=== PATIENT | male | born 1935 | race Caucasian/White ===

== ENCOUNTER 2018-02-24 21:30 | Observation (INO) ==
[2018-02-24] MEDS ORDERED: IOPAMIDOL 100 ML BOTTLE IV ONE (21:31)
[2018-02-24] MEDS ORDERED: DILTIAZEM 25 MG/5 ML VIAL IV ONE (21:39)
--- NOTE | 2018-02-24 21:40 | Emergency Department Note ---
General Adult HPI - General Chief complaint: Blood Pressure Problem Stated complaint: low blood pressure, high heart rate Time Seen by Provider: 02/24/18 21:32 Source: patient Mode of arrival: ambulatory Limitations: no limitations - History of Present Illness HPI Narrative: This patient is aware of some irregular tachycardia and slight shortness of breath this evening but no chest pain. Denies ever having anything like this before and has no chronic medical problems. - Related Data Home Medications Medication Instructions Recorded Confirmed Lisinopril [Zestril] 20 mg PO DAILY 06/06/15 06/06/15 Omeprazole [PriLOSEC] 20 mg PO ACB 06/06/15 06/06/15 metFORMIN [Glucophage] 1,000 mg PO BIDCC 06/06/15 06/06/15 Allergies Allergy/AdvReac Type Severity Reaction Status Date / Time propranolol AdvReac Mild Anxiety Verified 02/25/18 06:40 Review of Systems All systems ED: reviewed and negative except as stated. Past Medical History - Past Medical History Medical history: Reports: no medical history - Social History smoking status: Current every day smoker Physical Exam Limitations: no limitations General appearance: alert Head: atraumatic Eye: Present: normal appearance ENT: normal exam Neck: Present: normal inspection Chest: Present: normal inspection Respiratory: Present: normal lung sounds bilaterally Cardiovascular: Present: irregular rhythm, normal heart sounds Abdominal: Present: soft. Absent: distention, tenderness Neurological: Present: alert Psychiatric: Present: normal affect, normal mood Skin: Present: warm, dry, intact Course Vital Signs Temperature 97.3 F 02/24/18 21:31 Pulse Rate 139 H 02/24/18 21:31 Respiratory Rate 32 H 02/24/18 21:31 Blood Pressure 133/76 02/24/18 21:31 Pulse Oximetry (%) 95 02/24/18 21:31 Temperature 97.4 F 02/25/18 07:11 Pulse Rate 66 02/25/18 01:00 Respiratory Rate 16 02/25/18 07:11 Blood Pressure 117/75 02/25/18 07:11 Pulse Oximetry (%) 97 02/25/18 07:11 Medical Decision Making - MDM Narrative Medical decision making narrative: This patient is treated with IV diltiazem 70s and 80s but was apparently still atrial flutter with block. Patient had a slightly elevated d-dimer at 0.63 so CTA of the chest was patient was admitted to telemetry floor by Dr. Maldonado. - Lab Data Lab results reviewed: Yes I reviewed the patient's lab results. Result diagrams: 02/25/18 03:30 02/25/18 03:30 Lab Results 02/24/18 02/24/18 02/24/18 Range/Units 21:49 21:49 21:49 WBC (4.5-11.0) K/mcL RBC (4.50-5.90) M/mcL Hgb (13.5-16.5) g/dL Hct (41.0-55.0) % MCV (80.0-100.0) fL MCH (26.0-34.0) pg MCHC (31.0-36.0) g/dL RDW (11.5-14.5) % Plt Count (140-440) K/mcL MPV (7.4-10.4) fL Gran % (38.0-78.0) % Lymph % (Auto) (15.5-49.0) % Price % (Auto) (1.0-12.0) % Eos % (Auto) (0.0-7.0) % Baso % (Auto) (0.0-2.0) % Gran # (1.8-8.0) K/mcL Lymph # (Auto) (1.5-4.8) K/mcL Price # (Auto) (0.1-0.9) K/mcL Eos # (Auto) (0.0-0.7) K/mcL Baso # (Auto) (0.0-0.3) K/mcL D-Dimer 0.63 H (0.00-0.40) ug/ml Sodium TNP Potassium TNP Chloride TNP Carbon Dioxide TNP Anion Gap TNP BUN TNP Creatinine TNP GFR Calculation TNP Glucose TNP Calcium TNP Total Bilirubin TNP AST TNP ALT TNP Alkaline Phosphatase TNP Troponin T TNP Total Protein TNP Albumin TNP Globulin TNP Albumin/Globulin Ratio TNP TSH (0.27-5.01) uIU/ml 02/24/18 02/24/18 02/24/18 Range/Units 21:50 23:00 23:00 WBC 10.8 (4.5-11.0) K/mcL RBC 5.03 (4.50-5.90) M/mcL Hgb 15.6 (13.5-16.5) g/dL Hct 46.6 (41.0-55.0) % MCV 92.5 (80.0-100.0) fL MCH 31.1 (26.0-34.0) pg MCHC 33.6 (31.0-36.0) g/dL RDW 13.3 (11.5-14.5) % Plt Count 164 (140-440) K/mcL MPV 9.3 (7.4-10.4) fL Gran % 66.6 (38.0-78.0) % Lymph % (Auto) 19.1 (15.5-49.0) % Price % (Auto) 8.8 (1.0-12.0) % Eos % (Auto) 5.5 (0.0-7.0) % Baso % (Auto) 0 (0.0-2.0) % Gran # 7.1 (1.8-8.0) K/mcL Lymph # (Auto) 2.1 (1.5-4.8) K/mcL Price # (Auto) 1.0 H (0.1-0.9) K/mcL Eos # (Auto) 0.6 (0.0-0.7) K/mcL Baso # (Auto) 0 (0.0-0.3) K/mcL D-Dimer (0.00-0.40) ug/ml Sodium 131 L Potassium 3.1 L Chloride 92 L Carbon Dioxide 22 Anion Gap 17.0 H BUN 9 Creatinine 0.9 GFR Calculation 80 Glucose 136 H Calcium 9.3 Total Bilirubin 0.5 AST 35 ALT 22 Alkaline Phosphatase 120 H Troponin T < 0.01 Total Protein 7.3 Albumin 3.6 Globulin 3.7 Albumin/Globulin Ratio 1.0 TSH (0.27-5.01) uIU/ml 02/24/18 Range/Units 23:00 WBC (4.5-11.0) K/mcL RBC (4.50-5.90) M/mcL Hgb (13.5-16.5) g/dL Hct (41.0-55.0) % MCV (80.0-100.0) fL MCH (26.0-34.0) pg MCHC (31.0-36.0) g/dL RDW (11.5-14.5) % Plt Count (140-440) K/mcL MPV (7.4-10.4) fL Gran % (38.0-78.0) % Lymph % (Auto) (15.5-49.0) % Price % (Auto) (1.0-12.0) % Eos % (Auto) (0.0-7.0) % Baso % (Auto) (0.0-2.0) % Gran # (1.8-8.0) K/mcL Lymph # (Auto) (1.5-4.8) K/mcL Price # (Auto) (0.1-0.9) K/mcL Eos # (Auto) (0.0-0.7) K/mcL Baso # (Auto) (0.0-0.3) K/mcL D-Dimer (0.00-0.40) ug/ml Sodium Potassium Chloride Carbon Dioxide Anion Gap BUN Creatinine GFR Calculation Glucose Calcium Total Bilirubin AST ALT Alkaline Phosphatase Troponin T Total Protein Albumin Globulin Albumin/Globulin Ratio TSH 4.71 (0.27-5.01) uIU/ml - Radiology Data Radiology results reviewed: Yes I reviewed the patient's radiology results. Disposition Pt seen by ACCOUNTS SPECIALIST/PA only: No Clinical Impression: Atrial flutter Disposition: Xfer As Inpt ([facility]) Condition: Good
[2018-02-24] MEDS ORDERED: LACTATED RINGERS 1,000 ML IV SCH (21:45)
[2018-02-24] MEDS ORDERED: DILTIAZEM 125 MG in DEXTROSE 5% IN WATER 100 ML IV SCH (21:45)
[2018-02-24 22:23] LABS: Basophils # (Auto) 0 K/mcL (0.0-0.3); Basophils % (Auto) 0 % (0.0-2.0); Eosinophils # (Auto) 0.6 K/mcL (0.0-0.7); Eosinophils % (Auto) 5.5 % (0.0-7.0); Granulocytes % (Auto) 66.6 % (38.0-78.0); Lymphocytes # (Auto) 2.1 K/mcL (1.5-4.8); Lymphocytes % (Auto) 19.1 % (15.5-49.0); Mean Cell Volume 92.5 fL (80.0-100.0); Mean Corpuscular HGB Conc 33.6 g/dL (31.0-36.0); Mean Corpuscular Hemoglobin 31.1 pg (26.0-34.0); Monocytes % (Auto) 8.8 % (1.0-12.0); Platelet Count 164 K/mcL (140-440); RBC 5.03 M/mcL (4.50-5.90); Red Cell Distribution Width 13.3 % (11.5-14.5)
[2018-02-24] MEDS ORDERED: 0.9 % SODIUM CHLORIDE 1,000 ML IV SCH (22:45)
[2018-02-24 23:28] LABS: ALT/SGPT 22 U/l (0-40); Albumin 3.6 gm/dL (3.2-5.2); Alkaline Phosphatase 120 U/L (39-117); Blood Urea Nitrogen 9 mg/dl (8-23)
[2018-02-25] MEDS ORDERED: POTASSIUM CHLORIDE 20 MEQ PACKET PO ONE ×2 (00:11→00:53)
[2018-02-25] MEDS ORDERED: POTASSIUM CHLORIDE 40 MEQ in DEXTROSE 5% IN WATER 500 ML IV ONE ×2 (00:11→00:53)
[2018-02-25] MEDS ORDERED: ACETAMINOPHEN 325 MG TABLET PO PRN (00:53)
[2018-02-25] MEDS ORDERED: oxyCODONE/APAP 5/325MG TABLET PO PRN (00:53)
[2018-02-25] MEDS ORDERED: IPRATROPIUM/ALBUTEROL 3 ML AMPUL.NEB NEB PRN (00:53)
[2018-02-25] MEDS ORDERED: NALOXONE HCL 0.4 MG/ML VIAL IV PRN (00:53)
[2018-02-25] MEDS ORDERED: 0.9 % SODIUM CHLORIDE 1,000 ML IV SCH (00:53)
[2018-02-25] MEDS ORDERED: ONDANSETRON 4 MG/2 ML VIAL IV PRN (00:53)
[2018-02-25] MEDS ORDERED: POTASSIUM CHLORIDE 20 MEQ/10 ML VIAL IV ONE (01:08)
[2018-02-25] MEDS ORDERED: DILTIAZEM 30 MG TABLET ONE ×2 (01:21→06:03)
[2018-02-25] MEDS: DILTIAZEM 30 MG TABLET PO SCH ×3 (01:21→13:33)
--- NOTE | 2018-02-25 01:23 | Internal Med History&Physical ---
Medical - H&P: [facility] Patient information: Note initiated : 02/25/18 at 1:14 am Service Date, if different from initiated Date: [] Patient: Rafael Elise a 83 y/o M admitted on 02/25/18 for low blood pressure, high heart rate. Chief Complaint: [] History of present illness: Mr. Elise is a 83 year old M with h/o DM, HTN, , presents to the ER with complaints of shortness of breath, and low bp with high HR The patient noted that this evening he suddenly started not to feel well, he usually drinks 3-4 drinks of gin and tonic daily, last drink 4 pm, he notesd around 10 pm he was a bit short of breath. He decided to check his blood pressure and his bp readings were very low, he was feeling weak, his HR was in 130's and so he decided to come to the ER for further evaluation he denies any other acute complaints or concerns He denies cp, dizziness, chest tightness, nausea, blurring of vision, syncope, cough, leg swelling, abdominal pain or any other complaints or any other symptoms associated with his presenting complaint. In the ER he was tachyardic, EKG showed atrial flutter with RVR, his labs were stable, K 3.1, cxr is neg for acute pathology, D Dmier elevated, CTA done, report not available. The patient was given 20mg IV cardizem, and then placed on cardizem drip and admitted to the hospital for further management. the patient wishes to be full code All systems: reviewed and no additional remarkable complaints except as stated ( as per HPI rest neg) Medical - H&P: PMH Medical history: DM HTN Etoh abuse/ use Smoker Surgical history: denie any significant sx in past Pertinent family history: no h/o cardiovascualr disease in family Social history: smokes more than a pack a day drinks 3-4 drinks etoh daily retired tries to keep busy with various hobbies Medical - H&P: Meds Home Medications Medication Instructions Recorded Confirmed Type Lisinopril [Zestril] 20 mg PO DAILY 06/06/15 06/06/15 History Omeprazole [PriLOSEC] 20 mg PO ACB 06/06/15 06/06/15 History metFORMIN [Glucophage] 1,000 mg PO BIDCC 06/06/15 06/06/15 History Allergies Allergy/AdvReac Type Severity Reaction Status Date / Time propranolol AdvReac Anxiety Verified 02/24/18 21:35 UNKNOWN EYE DROP Allergy Intermediate REDNESS, Uncoded 01/03/15 18:24 SWELLING, BURNING TO EYE Medical - H&P: Exam - Constitutional Vitals: Temp Pulse Resp BP Pulse Ox 97.3 F 88 22 96/55 99 02/24/18 21:31 02/24/18 23:01 02/24/18 23:01 02/24/18 23:01 02/24/18 23:01 Exam: GENERAL: The patient is a well-developed, well-nourished in no apparent distress. Is alert and oriented x3. VITAL SIGNS: Reviewed and as noted elsewhere. HEENT: Head is normocephalic and atraumatic. Extraocular muscles are intact. Pupils are equal, round, and reactive to light. Nares appeared normal. Mouth appears any without lesions. Mucous membranes are moist. NECK: Normal to inspection, Supple, No lymphadenopathy or thyromegaly. LUNGS: Air entry equal on both sides, no wheezing, crackles or rhonchi noted. No accessory muscles of respiration HEART: Regular rate and rhythm irregular, S1 and S2 heard, no Gallop, S3 or Rub Noted, No Gross murmur heard. ABDOMEN: Soft, nontender, and nondistended. Positive bowel sounds. No hepatosplenomegaly was noted. EXTREMITIES: No cyanosis, clubbing, rash, lesions or edema. NEUROLOGIC: Cranial nerves II through XII are grossly intact. Motor and Sensory System Grossly Intact PSYCHIATRIC: Normal affect, Normal Mood. Appropriate Behavior. SKIN: No ulceration or wounds noted, No jaundice, No rash noted. Medical - H&P: Reslt - Labs CBC & Chem 7: 02/24/18 21:50 02/24/18 23:00 Labs: Short CBC 02/24/18 Range/Units 21:50 WBC 10.8 (4.5-11.0) K/mcL Hgb 15.6 (13.5-16.5) g/dL Hct 46.6 (41.0-55.0) % Plt Count 164 (140-440) K/mcL BMP 02/24/18 02/24/18 21:49 23:00 Sodium TNP 131 L Potassium TNP 3.1 L Chloride TNP 92 L Carbon Dioxide TNP 22 BUN TNP 9 Creatinine TNP 0.9 Glucose TNP 136 H Calcium TNP 9.3 Cardiac Enzymes 02/24/18 02/24/18 Range/Units 21:49 23:00 Troponin T TNP < 0.01 Liver Function 02/24/18 02/24/18 Range/Units 21:49 23:00 Total Bilirubin TNP 0.5 AST TNP 35 ALT TNP 22 Alkaline Phosphatase TNP 120 H Albumin TNP 3.6 Medical - H&P: A/P - Narrative A/P Narrative: A/P Atrial Flutter with RVR- Rate controlled now, start on Cardizem oral, wean off drip, tsh neg, get echo, refer to cardiology as outpatient possible ablation, role of etoh? [id number] score is 4, high risk for CVA, start on anticoagulation , Eliquis 5mg bid for now, hb stable, Major risks benefits of the medication discussed, all questions answered. Etoh abuse/ Tobacco abuse- educated to stop, on my review of CT the liver appears small, irregular borders, likely cirrhotic, IV thiamine for now. will watch for withdrawal, pt denies h/o same. DM- on metformin, hold off for now, given h/o etoh use, likely cirrhosis, would prefer alternative agent HTN- hold of bp meds, on Cardizem now, monitor bp, will need to adjust meds at discharge. DVT hep sq for now, Full code
[2018-02-25] MEDS ORDERED: POTASSIUM CHLORIDE 10 MEQ TABLET PO ONE (01:28)
[2018-02-25] MEDS ORDERED: POTASSIUM CHLORIDE 20 MEQ PACKET ONE (01:47)
[2018-02-25] MEDS: THIAMINE 100 MG in 0.9 % SODIUM CHLORIDE 50 ML IV SCH ×2 (02:51→09:17)
[2018-02-25 05:28] LABS: Basophils # (Auto) 0 K/mcL (0.0-0.3); Basophils % (Auto) 0.2 % (0.0-2.0); Eosinophils # (Auto) 0.3 K/mcL (0.0-0.7); Eosinophils % (Auto) 3.3 % (0.0-7.0); Granulocytes % (Auto) 73.7 % (38.0-78.0); Lymphocytes # (Auto) 1.4 K/mcL (1.5-4.8); Lymphocytes % (Auto) 14.4 % (15.5-49.0); Mean Cell Volume 94.6 fL (80.0-100.0); Mean Corpuscular Hemoglobin 31.2 pg (26.0-34.0); Monocytes # (Auto) 0.8 K/mcL (0.1-0.9); Monocytes % (Auto) 8.4 % (1.0-12.0); Platelet Count 155 K/mcL (140-440); RBC 4.81 M/mcL (4.50-5.90); Red Cell Distribution Width 13.9 % (11.5-14.5)
[2018-02-25] MEDS: 0.9 % SODIUM CHLORIDE 10 ML SYRINGE IV SCH ×2 (06:20→13:33)
[2018-02-25 06:36] LABS: ALT/SGPT 20 U/l (0-40); Albumin 3.5 gm/dL (3.2-5.2); Alkaline Phosphatase 114 U/L (39-117); Bilirubin,Direct 0.2 mg/dL (0.0-0.3); Blood Urea Nitrogen 8 mg/dl (8-23); Gamma Glutamyl Transpeptidase 215 U/L (8-61); Uric Acid 6.4 mg/dL (2.5-8.0)
--- NOTE | 2018-02-25 06:56 | XRay Report ---
CLINICAL INFORMATION: Shortness of breath COMPARISON: None. FINDINGS: The heart size, mediastinum and pulmonary vessels are unremarkable. The lungs are clear. There are no effusions. The bones and soft tissues are within normal limits. IMPRESSION: Normal chest. Interpreted and Authenticated by: Vasiliy Babin 02/25/18
[2018-02-25] MEDS ORDERED: MAGNESIUM SULFATE 2 GM/50 ML BAG IV ONE (07:41)
--- NOTE | 2018-02-25 08:34 | Cat Scan Report ---
CLINICAL INFORMATION: Shortness of breath COMPARISON: None. TECHNIQUE: 80 cc of Isovue-300 were injected intravenously. Using SmartPrep to maximize pulmonary artery opacification, 2.5 mm helical slices were obtained from the lung apices through the lung bases. Following reconstruction, 2.5 mm sagittal, coronal, and axial reformations were processed. The exam was reviewed at mediastinal, lung, and bone windows. The exam was performed using radiation dose optimization techniques including, but not limited to, automated exposure control, adjustment of the mA and/or kV according to patient size and use of iterative reconstruction technique. FINDINGS: The pulmonary arteries are normal in contour and caliber and well-opacified - no evidence of embolus. Thoracic aorta is also normal in diameter: there is moderate fibrofatty calcific plaque throughout the aortic arch and descending thoracic aorta. There is no adenopathy in the mediastinal hilar or axillary regions. The heart is mildly enlarged with moderate scattered fibrofatty calcific plaque in the visualized coronary arteries. Esophagus is normal. Pulmonary parenchymal windows show mild centrilobular emphysema changes featuring elevated lung volumes, bronchial wall thickening and dilatation compatible with chronic bronchitis and scattered bullae present on the upper lobes. There is a small (6 mm) nodule adjacent to superior wall of a left apical bullae. No other significant nodules. Small patchy regions of airspace disease noted in the posterior and lateral basilar segments of the right lower lobe. This may represent pneumonia or fibrosis. Scattered scarring is seen in the periphery of the left lower lobe. Bone windows show mild chronic L1 compression fracture. Images through the upper abdomen show moderate cirrhotic changes. No ascites or evidence for pulmonary hypertension - portal vein normal caliber. There are no varices. Spleen is normal in size. Visualized pancreas kidneys and adrenal glands are normal. IMPRESSION: 1. No evidence of pulmonary embolus 2. Mild patchy airspace disease in the lateral and posterior basilar segments of the right lower lobe of uncertain chronicity. If acute, this likely represents early pneumonia. It also may merely represent chronic fibrosis. Suggest two-view chest x-ray in the next one to two days for reevaluation if pneumonia is suspected clinically 3. Moderate centrilobular emphysema changes. A 6 mm nodule adjacent to a left apical bulla is appreciated. Consider one year follow-up chest CT. It is understood this may not be indicated in this clinical situation due to advanced age 4. Cirrhotic changes Interpreted and Authenticated by: Vasiliy Babin 02/25/18
[2018-02-25] MEDS ORDERED: APIXABAN 2.5 MG TABLET PO SCH (09:00)
[2018-02-25] MEDS ORDERED: HEPARIN 5,000 UNIT/ML VIAL SQ SCH (09:00)
[2018-02-25] MEDS ORDERED: DILTIAZEM 125 MG in DEXTROSE 5% IN WATER 100 ML IV SCH (10:00)
[2018-02-25] MEDS ORDERED: DILTIAZEM 125 MG in DEXTROSE 5% IN WATER 100 ML IV PRN (11:15)
--- NOTE | 2018-02-25 15:06 | Discharge Summary ---
Medical - DS: Prov Patient information: Note initiated : 02/25/18 at 3:04 pm Service Date, if different from initiated Date: [] Patient: Rafael Elise 83 y/o M admitted on 02/25/18 for low blood pressure, high heart rate. Chief Complaint: [] Date of admission: 02/25/18 00:51 Discharge date: 02/25/18 Primary care physician: Tanesha Trivedi Admitting clinician: Bala Maldonado Consults: 02/24/18 23:58 Consult to Physician [CONS] Stat Comment: Consulting Provider: Bala Maldonado Reason For Exam: Physician to Consult Discharging clinician: Bala Maldonado Medical - DS: Meds - Discharge Medications Prescriptions: Apixaban [Eliquis] 5 mg PO BID #30 tab Diltiazem HCl [Diltiazem 24Hr ER] 180 mg PO DAILY #30 cap.er.24h Active and Home Medications: Home Medications Lisinopril [Zestril] 20 mg PO DAILY 06/06/15 [History Confirmed 06/06/15 Last Taken 06/06/15] Omeprazole [PriLOSEC] 20 mg PO ACB 06/06/15 [History Confirmed 06/06/15 Last Taken 06/06/15] metFORMIN [Glucophage] 1,000 mg PO BIDCC 06/06/15 [History Confirmed 06/06/15 Last Taken 06/05/15] Medical - DS: Hosp Hospital course: Mr. Elise is a 83 year old M with h/o DM, HTN, , presents to the ER with complaints of shortness of breath, and low bp with high HR The patient noted that this evening he suddenly started not to feel well, he usually drinks 3-4 drinks of gin and tonic daily, last drink 4 pm, he notesd around 10 pm he was a bit short of breath. He decided to check his blood pressure and his bp readings were very low, he was feeling weak, his HR was in 130's and so he decided to come to the ER for further evaluation he denies any other acute complaints or concerns He denies cp, dizziness, chest tightness, nausea, blurring of vision, syncope, cough, leg swelling, abdominal pain or any other complaints or any other symptoms associated with his presenting complaint. In the ER he was tachyardic, EKG showed atrial flutter with RVR, his labs were stable, K 3.1, cxr is neg for acute pathology, D Dmier elevated, CTA done, report not available. The patient was given 20mg IV cardizem, and then placed on cardizem drip and admitted to the hospital for further management. Aflutter with RVR, resolved spontaneously this AM around 3 am, pt has been in sinus since then, his rate is well controlled with po cardizem Patient will be discharged home on PO diltazem 180mg once daily, eliquis 5mg bid for anticoagulation (CHADSVASC2 score is 4), I have advised him to hold off on his home bp medication till we know for sure how this new medication is affecting his bp, his pcp can resume his medications in the clinic. The patient had an Echo cardiogram which showed normal left ventricular function. The patient had low K and low Mg on presention, replaced likely secondary to etoh. Educated to stop etoh, eat diet rich in potassium and take a magnesium supplement daily. The patient CT reviewed, no e/o pna clinically, noted cirrhosis of liver, likelyi etoh related, given his etoh use and cirrhosis, I have advised him to stop the metformin as its contraindicated. [facility] I am not sure if he will be able to get his eliquis covered locally, I have asked him to take a baby aspriin till he is seen by his PCP should he not be able to fill his eliquis. He is not to take aspriin, nsaids or any other blood thinners if he is taking eliquis. Pt has verbalized understanding of instructions. Discharge diagnosis: Atrial Flutter - Time Spent with Patient Total time spent providing and/or coordinating discharge services: Greater than 30 minutes Medical - DS: Exam - Constitutional Vitals: Vital Signs Temp Pulse Pulse Resp BP BP Pulse Ox 02/25/18 14:59 98 F 74 18 157/91 98 02/25/18 11:33 97.5 F 20 135/76 98 02/25/18 07:11 97.4 F 16 117/75 97 02/25/18 04:01 98.2 F 18 141/84 93 02/25/18 03:01 102/68 96 02/25/18 02:12 112/70 96 02/25/18 02:05 112/70 94 02/25/18 01:46 110/67 94 02/25/18 01:31 109/71 96 02/25/18 01:16 102/62 91 02/25/18 01:00 66 111/78 94 02/25/18 00:51 97.4 F 92 H 18 111/78 100 02/25/18 00:01 97.4 F 69 20 107/62 96 02/24/18 23:01 88 22 96/55 99 02/24/18 22:46 69 29 H 91/55 96 02/24/18 22:31 51 L 25 H 119/52 98 02/24/18 22:23 44 L 17 105/55 95 02/24/18 22:03 70 15 104/45 97 02/24/18 22:01 44 L 23 H 104/45 95 02/24/18 21:54 65 24 H 101/76 94 02/24/18 21:46 64 13 108/91 94 02/24/18 21:39 90 31 H 121/74 93 02/24/18 21:31 97.3 F 139 H 32 H 133/76 95 Intake and Output 02/25/18 02/25/18 02/25/18 05:59 13:59 21:59 Intake Total 1383 / 1383 1681 / 1681 Output Total 1200 / 1200 301 / 301 Balance 183 / 183 1380 / 1380 Intake: IV 403 / 403 1101 / 1101 Sodium Chloride 0.9% 1,000 ml @ 129 / 129 250 mls/hr IV .Q4H [facility] Rx#: [id number] Cardizem 125 mg In Dextrose 5% 1 / 1 in Water 100 ml @ 5 MG/HR 5 mls /hr IV Q12H [facility] Rx#:[id number] Lactated Ringers 1,000 ml @ 250 200 / 200 mls/hr IV .Q4H [facility] Rx#: [id number] Vitamin B1 100 mg In Sodium 51 / 51 51 / 51 Chloride 0.9% 50 ml @ 50 mls/hr IV DAILY [facility] Rx#:[id number] Oral 480 / 480 580 / 580 IV - Manual Only 500 / 500 Output: Void Amount 1200 / 1200 300 / 300 # of times incontinent of urine Other: Meal Lunch Percent of Meal Consumed 75% Feeding Ability Independent Stool Size Large Moderate Stool Color Green Brown Green Stool Consistency Soft Soft Formed Formed # Voids 1 # Bowel Movements 0 1 Weight 201 lb 7 oz Additional comments: Constitutional; Afebrile, cooperative, alert, not in distress. Eyes- No icterus, , No periorbital swelling Ears- Ext ear normal, hearing normal to conversation. Neck- Midline trachea, supple Respiratory system: Air Entry equal on both sides, No crackles or wheezing, no rhonchi. CVS- Rate rhythm regular, S1,S2 heard, no gallop, no rub. Abdomen- Soft nontender abdomen, no organomegaly, no tenderness, no guarding or rigidity, EXTENSION EDUCATOR- AOOx3, moving all extremities, no gross focal deficit noted. Medical - DS: Data Labs on day of discharge: Labs from last 24 hours 02/25/18 02/25/18 02/25/18 03:30 03:30 03:30 WBC 9.9 RBC 4.81 Hgb 15.0 Hct 45.5 MCV 94.6 MCH 31.2 MCHC 33.0 RDW 13.9 Plt Count 155 MPV 9.7 Gran % 73.7 Lymph % (Auto) 14.4 L [place] % (Auto) 8.4 Eos % (Auto) 3.3 Baso % (Auto) 0.2 Gran # 7.3 Lymph # (Auto) 1.4 L [place] # (Auto) 0.8 Eos # (Auto) 0.3 Baso # (Auto) 0 PT 15.7 H INR 1.2 H D-Dimer Sodium 132 L Potassium 4.7 Chloride 95 L Carbon Dioxide 23 Anion Gap 14.0 BUN 8 Creatinine 0.7 GFR Calculation 89 Glucose 158 H Uric Acid 6.4 Calcium 9.0 Phosphorus 2.9 Magnesium 1.4 L Total Bilirubin 0.6 Direct Bilirubin 0.2 GGT 215 H AST 32 ALT 20 Alkaline Phosphatase 114 Lactate Dehydrogenase 140 Troponin T Total Protein 7.0 Albumin 3.5 Globulin 3.5 Albumin/Globulin Ratio 1.0 Triglycerides 159 H TSH 02/24/18 02/24/18 02/24/18 23:00 23:00 23:00 WBC RBC Hgb Hct MCV MCH MCHC RDW Plt Count MPV Gran % Lymph % (Auto) [place] % (Auto) Eos % (Auto) Baso % (Auto) Gran # Lymph # (Auto) [place] # (Auto) Eos # (Auto) Baso # (Auto) PT INR D-Dimer Sodium 131 L Potassium 3.1 L Chloride 92 L Carbon Dioxide 22 Anion Gap 17.0 H BUN 9 Creatinine 0.9 GFR Calculation 80 Glucose 136 H Uric Acid Calcium 9.3 Phosphorus Magnesium Total Bilirubin 0.5 Direct Bilirubin GGT AST 35 ALT 22 Alkaline Phosphatase 120 H Lactate Dehydrogenase Troponin T < 0.01 Total Protein 7.3 Albumin 3.6 Globulin 3.7 Albumin/Globulin Ratio 1.0 Triglycerides TSH 4.71 02/24/18 02/24/18 02/24/18 21:50 21:49 21:49 WBC 10.8 RBC 5.03 Hgb 15.6 Hct 46.6 MCV 92.5 MCH 31.1 MCHC 33.6 RDW 13.3 Plt Count 164 MPV 9.3 Gran % 66.6 Lymph % (Auto) 19.1 [place] % (Auto) 8.8 Eos % (Auto) 5.5 Baso % (Auto) 0 Gran # 7.1 Lymph # (Auto) 2.1 [place] # (Auto) 1.0 H Eos # (Auto) 0.6 Baso # (Auto) 0 PT INR D-Dimer 0.63 H Sodium TNP Potassium TNP Chloride TNP Carbon Dioxide TNP Anion Gap TNP BUN TNP Creatinine TNP GFR Calculation TNP Glucose TNP Uric Acid Calcium TNP Phosphorus Magnesium Total Bilirubin TNP Direct Bilirubin GGT AST TNP ALT TNP Alkaline Phosphatase TNP Lactate Dehydrogenase Troponin T Total Protein TNP Albumin TNP Globulin TNP Albumin/Globulin Ratio TNP Triglycerides TSH 02/24/18 21:49 WBC RBC Hgb Hct MCV MCH MCHC RDW Plt Count MPV Gran % Lymph % (Auto) [place] % (Auto) Eos % (Auto) Baso % (Auto) Gran # Lymph # (Auto) [place] # (Auto) Eos # (Auto) Baso # (Auto) PT INR D-Dimer Sodium Potassium Chloride Carbon Dioxide Anion Gap BUN Creatinine GFR Calculation Glucose Uric Acid Calcium Phosphorus Magnesium Total Bilirubin Direct Bilirubin GGT AST ALT Alkaline Phosphatase Lactate Dehydrogenase Troponin T TNP Total Protein Albumin Globulin Albumin/Globulin Ratio Triglycerides TSH Medical - DS: A/P - Patient/Caregiver Discharge Instructions Activity: increase activity as tolerated Diet: Cardiac Additional Instructions: Stop Alcohol consumption, Stop tobacco use Eat a diet rich in potassium or take a potassium supplement daily (can buy over the counter) Take a magnesium supplement daily (can buy over the counter) Stop your lisinopril for now, I have started you on a new medication for heart and blood pressure. Your PCP will decide if you can restart your old blood pressure medication. YOu need to be on blood thinners, I have prescribed Eliquis 5mg twice daily. If you are unable to afford this medication, take a baby aspirin 81mg once daily with food till you are seen by your PCP. [facility] can [facility] or give you an alternative medication Talk to your PCP for a cardiology referral for further evaluation. Do not take metformin, it can cause side effects given that you have cirrhosis of liver. Go to the ER if worsening symptoms, chest pain, blood in urine, stools black stools or any other concerning symptom. - Follow up Plan Follow up with: Swetha Ashford [Referring] - 03/14/18 1:30 pm Disposition: Home, Self-Care Prognosis: Fair Rehab Potential: Fair I certify that the patient requires SNF services: No Overall status at discharge: patient is back to baseline Medical - DS: Qual - VTE Deep Vein Thrombosis/Pulmonary Embolism Present on Admission: No
== END 2018-02-25 15:45 | disposition home or self-care (01) ==
LOC: ED 21:30 → ICU 21:30
PROVIDERS: ADMIT Internal Medicine; ATTEND Internal Medicine